=== PATIENT | female | born 1975 | race American Indian/Alaskan Native ===

== ENCOUNTER 2016-07-27 15:07 | Emergency (ER) | payer OTHER, MEDICARE ==
[2016-07-27 16:01] VITALS: BP 130/98
[2016-07-27] MEDS ORDERED: Sodium Chloride 0.9% 10 ML Syringe FLUSH PRN (16:26)
[2016-07-27] MEDS ORDERED: Ondansetron 4 MG/2 ML SDV IVPUSH ONE (16:26)
[2016-07-27] MEDS ORDERED: Pantoprazole 40 MG Vial IVPUSH ONE (16:26)
[2016-07-27] MEDS ORDERED: HYDROmorphone 1 MG/ML Syringe IVPUSH ONE (16:26)
[2016-07-27] MEDS ORDERED: Sodium Chloride 0.9% 1,000 ML IV ONE (16:26)
--- NOTE | 2016-07-27 16:29 | EDM.PDOC ---
ED HPI GENERAL MEDICAL PROBLEM - General Chief Complaint: Abdominal Pain Stated Complaint: ABDOMINAL PAIN NO BM IN 5 DAYS Time Seen by Provider: 07/27/16 16:17 Source of Information: Reports: Patient History Limitations: Reports: No Limitations - History of Present Illness INITIAL COMMENTS - FREE TEXT/NARRATIVE: Patient is a 40-year-old female with history of Crohn's disease and bowel resection along with bowel obstruction one year ago presenting to the ED with no bowel movement for the past 5 days. She's had 3 episodes of emesis concerning for fecal matter present. She had diffuse abdominal discomfort at this time. Last flareup was approximately one month ago. She was seen at [facility] in [facility]. States her abdomen is distended and has not been passing gas. She has been taking MiraLax for the past 5 days and also Colace multiple times per day. She last ate this a.m. only to vomit up all the food. She has pain to her rectum with straining and has noticed some blood on the tissue with wiping. Denies any fever/chills, shortness of breath, chest pain , blood in her emesis, or pain with urination. Past medical history: History of bowel obstruction one year ago, Crohn's disease , bowel resection, diabetes, PTSD, hepatitis C Current medications: Prozac, trazodone, NovoLog , Levemir, and Bentyl. Onset: Other Duration: Day(s): (5), Constant, Getting Worse, Waxing/Waning Location: Reports: Abdomen Quality: Reports: Ache, Sharp, Other (cramping) Severity: Severe Improves with: Reports: None Worsens with: Reports: Other (palpation), Movement Associated Symptoms: Reports: Loss of Appetite, Nausea/Vomiting. Denies: Chest Pain, Fever/Chills, Shortness of Breath Treatments SEARCH ENGINE OPTIMIZER: Reports: Other (see below) Other Treatments SEARCH ENGINE OPTIMIZER: miralax Lower Abdominal Pain Score (Numeric/FACES): 8 - Related Data Allergies Allergy/AdvReac Type Severity Reaction Status Date / Time aripiprazole [From Abilify] Allergy Shaking Verified 07/27/16 15:55 haloperidol [From Haldol] Allergy Cannot Verified 05/26/16 21:34 CDT Remember haloperidol lactate Allergy Cannot Verified 05/26/16 21:34 CDT [From Haldol] Remember ketorolac tromethamine Allergy Seizure Verified 05/26/16 21:34 CDT [From Toradol] metoclopramide [From Reglan] Allergy Hives Verified 07/27/16 15:55 morphine Allergy Itching Verified 05/26/16 21:34 CDT tramadol Allergy Seizure Verified 05/26/16 21:34 CDT Home Meds: Home Meds Insulin Aspart [NovoLOG] 30 unit SUBCUT TIDAC 10/24/15 [History] Insulin Detemir [Levemir] 75 unit SUBCUT BID 10/24/15 [History] FLUoxetine [PROzac] 60 mg PO ACBREAKFAST 12/03/15 [History] traZODone 150 mg PO BEDTIME 04/27/16 [History] Nystatin [Nystatin Crm] 1 millunits TOP QID #1 tube 04/29/16 [Rx] Acetaminophen/HYDROcodone [[place] 325-5 MG] 1 tab PO Q6H PRN #10 tablet 07/27/16 [Rx] Magnesium Citrate [Citrate of Magnesia] 296 ml PO ONETIME #1 bottle 07/27/16 [Rx ] Ondansetron [Zofran ODT] 4 mg PO Q6H PRN #10 tab.dis 07/27/16 [Rx] Past Medical History HEENT History: Reports: None Cardiovascular History: Reports: None Respiratory History: Reports: None Gastrointestinal History: Reports: Bowel Obstruction, GERD, Other (See Below) Other Gastrointestinal History: crohns Genitourinary History: Reports: Renal Calculus Other Genitourinary History: Intermittent yeast infections PRODUCT SPECIALIST History: Reports: Other (See Below) Other OB/BYN History: Partial hysterectomy. Musculoskeletal History: Reports: None Neurological History: Reports: None Psychiatric History: Reports: Depression, PTSD, Suicide Attempt, Suicidal Ideation Other Psychiatric History: Pt takes Prozac and Trazadone. Endocrine/Metabolic History: Reports: Diabetes, Type II Immunologic History: Reports: Other (See Below) Other Immunologic History: Hx Hepatits C. Dermatologic History: Reports: Other (See Below) Other Dermatologic History: Dermatitis. - Infectious Disease History Infectious Disease History: Reports: Hepatitis C Other Infectious Disease History: no Hep C treatment - Past Surgical History HEENT Surgical History: Reports: None Musculoskeletal Surgical History: Reports: Knee Replacement, Shoulder Surgery Social & Family History - Family History Family Medical History: Noncontributory HEENT: Reports: None Other GI Family History: Chron's disease-mother Endocrine/Metabolic: Reports: Diabetes, type II - Tobacco Use Smoking Status *Q: Current Every Day Smoker Years of Tobacco use: 20 Packs/Tins Daily: 0.5 Used Tobacco, but Quit: No Second Hand Smoke Exposure: Yes - Caffeine Use Caffeine Use: Reports: None - Alcohol Use Days Per Week of Alcohol Use: 3 Number of Drinks Per Day: 1 Total Drinks Per Week: 3 - Recreational Drug Use Recreational Drug Use: No Drug Use in Last 12 Months: Yes Recreational Drug Type: Reports: Marijuana/Hashish ED ROS GENERAL - Review of Systems Review Of Systems: ROS reveals no pertinent complaints other than HPI. ED EXAM, GI/ABD - Physical Exam Exam: See Below Exam Limited By: No Limitations General Appearance: Alert, WD/WN, Mild Distress Ears: Hearing Grossly Normal Nose: Normal Inspection Throat/Mouth: Normal Voice, No Airway Compromise Head: Atraumatic, Normocephalic Neck: Normal Inspection, Supple Respiratory/Chest: No Respiratory Distress, Lungs Clear, Normal Breath Sounds Cardiovascular: Normal Peripheral Pulses, Regular Rate, Rhythm GI/Abdominal: Normal Bowel Sounds, Soft, No Organomegaly, Tenderness ( generalized), Distention, Other (the patient had a partial hysterectomy, cholecystectomy, bowel resection,and appendectomy) Course - Vital Signs Last Recorded V/S: Last Vital Signs Temp 98.0 F 07/27/16 15:56 Pulse 93 07/27/16 15:56 Resp 16 07/27/16 15:56 BP 130/98 H 07/27/16 15:56 Pulse Ox 100 07/27/16 15:56 - Orders/Labs/Meds Orders: Active Orders 24 hr Category Date Time Status Glucose [Blood Glucose Check, Bedside] [RC] ONETIME Care 07/27/16 17:37 Active Peripheral IV Care [RC] . DIRECTED Care 07/27/16 16:26 Active Peripheral IV Insertion Adult [OM.PC] Stat Oth 07/27/16 16:26 Ordered Labs: Laboratory Tests 07/27/16 07/27/16 07/27/16 Range/Units 16:45 16:45 16:45 WBC 8.74 (3.98-10.04) K/mm3 RBC 4.78 (3.98-5.22) M/mm3 Hgb 15.0 (11.2-15.7) gm/L Hct 42.3 (34.1-44.9) % MCV 88.5 (79.4-94.8) fl MCH 31.4 (25.6-32.2) pg MCHC 35.5 (32.2-35.5) g/dl RDW Std Deviation 43.0 (36.4-46.3) fL Plt Count 224 (182-369) K/mm3 MPV 10.2 (9.4-12.3) fl Neut % (Auto) 57.2 (34.0-71.1) % Lymph % (Auto) 31.9 (19.3-51.7) % [place] % (Auto) 9.0 (4.7-12.5) % Eos % (Auto) 0.7 (0.7-5.8) Baso % (Auto) 0.6 (0.1-1.2) % Neut # (Auto) 5.00 (1.56-6.13) K/mm3 Lymph # (Auto) 2.79 (1.18-3.74) K/mm3 [place] # (Auto) 0.79 H (0.24-0.36) K/mm3 Eos # (Auto) 0.06 (0.04-0.36) K/mm3 Baso # (Auto) 0.05 (0.01-0.08) K/mm3 Sodium 131 L (136-145) mEq/L Potassium 3.5 (3.5-5.1) mEq/L Chloride 96 L (98-107) mEq/L Carbon Dioxide 22 (21-32) mEq/L Anion Gap 16.5 H (5-15) BUN 7 (7-18) mg/dL Creatinine 0.8 (0.55-1.02) mg/dL Est Cr Clr Drug Dosing 88.38 mL/min Estimated GFR (MDRD) > 60 (>60) mL/min BUN/Creatinine Ratio 8.8 L (14-18) Glucose 457 H (74-106) mg/dL POC Glucose (70-105) mg/dL Calcium 9.3 (8.5-10.1) mg/dL Total Bilirubin 0.4 (0.2-1.0) mg/dL AST 74 H (15-37) U/L ALT 113 H (14-59) U/L Alkaline Phosphatase 305 H (46-116) U/L C-Reactive Protein < 0.2 (<1.0) mg/dL Total Protein 8.3 H (6.4-8.2) g/dl Albumin 3.5 (3.4-5.0) g/dl Globulin 4.8 gm/dL Albumin/Globulin Ratio 0.7 L (1-2) Lipase 312 (73-393) U/L Urine Color (Yellow) Urine Appearance (Clear) Urine pH (5.0-8.0) Ur Specific [place] (1.005-1.030) Urine Protein (Negative) Urine Glucose (UA) (Negative) Urine Ketones (Negative) Urine Occult Blood (Negative) Urine Nitrite (Negative) Urine Bilirubin (Negative) Urine Urobilinogen (0.2-1.0) Ur Leukocyte Esterase (Negative) Urine RBC (0-5) /hpf Urine WBC (0-5) /hpf Ur Epithelial Cells Ur Squamous Epith Cells (0-5) /hpf Urine Bacteria (FEW) /hpf Urine Mucus (FEW) /hpf Urine Opiates Screen (NEGATIVE) Ur Buprenorphine Scrn (NEGATIVE) Ur Oxycodone Screen (NEGATIVE) Urine Methadone Screen (NEGATIVE) Ur Propoxyphene Screen (NEGATIVE) Ur Barbiturates Screen (NEGATIVE) Ur Tricyclics Screen (NEGATIVE) Ur Phencyclidine Scrn (NEGATIVE) Ur Amphetamine Screen (NEGATIVE) U Methamphetamines Scrn (NEGATIVE) U Benzodiazepines Scrn (NEGATIVE) U Cocaine Metab Screen (NEGATIVE) U Marijuana (THC) Screen (NEGATIVE) Ketones 0.12 (0.0-0.3) mM 07/27/16 07/27/16 07/27/16 Range/Units 17:40 17:55 17:55 WBC (3.98-10.04) K/mm3 RBC (3.98-5.22) M/mm3 Hgb (11.2-15.7) gm/L Hct (34.1-44.9) % MCV (79.4-94.8) fl MCH (25.6-32.2) pg MCHC (32.2-35.5) g/dl RDW Std Deviation (36.4-46.3) fL Plt Count (182-369) K/mm3 MPV (9.4-12.3) fl Neut % (Auto) (34.0-71.1) % Lymph % (Auto) (19.3-51.7) % [place] % (Auto) (4.7-12.5) % Eos % (Auto) (0.7-5.8) Baso % (Auto) (0.1-1.2) % Neut # (Auto) (1.56-6.13) K/mm3 Lymph # (Auto) (1.18-3.74) K/mm3 [place] # (Auto) (0.24-0.36) K/mm3 Eos # (Auto) (0.04-0.36) K/mm3 Baso # (Auto) (0.01-0.08) K/mm3 Sodium (136-145) mEq/L Potassium (3.5-5.1) mEq/L Chloride (98-107) mEq/L Carbon Dioxide (21-32) mEq/L Anion Gap (5-15) BUN (7-18) mg/dL Creatinine (0.55-1.02) mg/dL Est Cr Clr Drug Dosing mL/min Estimated GFR (MDRD) (>60) mL/min BUN/Creatinine Ratio (14-18) Glucose (74-106) mg/dL POC Glucose 323 H (70-105) mg/dL Calcium (8.5-10.1) mg/dL Total Bilirubin (0.2-1.0) mg/dL AST (15-37) U/L ALT (14-59) U/L Alkaline Phosphatase (46-116) U/L C-Reactive Protein (<1.0) mg/dL Total Protein (6.4-8.2) g/dl Albumin (3.4-5.0) g/dl Globulin gm/dL Albumin/Globulin Ratio (1-2) Lipase (73-393) U/L Urine Color Light yellow (Yellow) Urine Appearance Clear (Clear) Urine pH 6.5 (5.0-8.0) Ur Specific [place] 1.015 (1.005-1.030) Urine Protein Negative (Negative) Urine Glucose (UA) 2+ H (Negative) Urine Ketones Negative (Negative) Urine Occult Blood Negative (Negative) Urine Nitrite Negative (Negative) Urine Bilirubin Negative (Negative) Urine Urobilinogen 0.2 (0.2-1.0) Ur Leukocyte Esterase Negative (Negative) Urine RBC Not seen (0-5) /hpf Urine WBC 0-5 (0-5) /hpf Ur Epithelial Cells Not Reportable Ur Squamous Epith Cells 10-20 H (0-5) /hpf Urine Bacteria Not seen (FEW) /hpf Urine Mucus Not seen (FEW) /hpf Urine Opiates Screen Presumptive positive H (NEGATIVE) Ur Buprenorphine Scrn Negative (NEGATIVE) Ur Oxycodone Screen Negative (NEGATIVE) Urine Methadone Screen Negative (NEGATIVE) Ur Propoxyphene Screen Negative (NEGATIVE) Ur Barbiturates Screen Negative (NEGATIVE) Ur Tricyclics Screen Negative (NEGATIVE) Ur Phencyclidine Scrn Negative (NEGATIVE) Ur Amphetamine Screen Negative (NEGATIVE) U Methamphetamines Scrn Negative (NEGATIVE) U Benzodiazepines Scrn Negative (NEGATIVE) U Cocaine Metab Screen Negative (NEGATIVE) U Marijuana (THC) Screen Negative (NEGATIVE) Ketones (0.0-0.3) mM Meds: Medications Discontinued Medications Generic Name Dose Route Start Last Admin Trade Name Freq PRN Reason Stop Dose Admin Diatrizoate Meglum/Diatrizoate Sod 90 ml 07/27/16 19:35 07/27/16 20:14 Gastrografin 37% PO 07/27/16 19:36 90 ml ONETIME ONE Administration Hydromorphone HCl 0.5 mg 07/27/16 16:26 07/27/16 16:53 Dilaudid IVPUSH 07/27/16 16:27 0.5 mg ONETIME ONE Administration Hydromorphone HCl 0.5 mg 07/27/16 19:16 07/27/16 19:20 Dilaudid IVPUSH 07/27/16 19:17 0.5 mg ONETIME ONE Administration Hydromorphone HCl 0.5 mg 07/27/16 20:58 07/27/16 21:18 Dilaudid IM 07/27/16 20:59 0.5 mg ONETIME ONE Administration Sodium Chloride 1,000 mls @ 999 mls/hr 07/27/16 16:26 07/27/16 16:50 Normal Saline IV 07/27/16 17:26 999 mls/hr ONETIME ONE Administration Iopamidol 100 ml 07/27/16 19:35 07/27/16 20:14 Isovue-300 (61%) IVPUSH 07/27/16 19:36 100 ml ONETIME ONE Administration Ondansetron HCl 4 mg 07/27/16 16:26 07/27/16 16:50 Zofran IVPUSH 07/27/16 16:27 4 mg ONETIME ONE Administration Pantoprazole Sodium 40 mg 07/27/16 16:26 07/27/16 16:51 Protonix Iv IVPUSH 07/27/16 16:27 40 mg ONETIME ONE Administration Sodium Chloride 10 ml 07/27/16 16:26 07/27/16 16:52 Saline Flush FLUSH 10 ml ASDIRECTED PRN Administration Keep Vein Open Sodium Chloride 10 ml 07/27/16 19:35 07/27/16 20:14 Saline Flush FLUSH 07/27/16 19:36 10 ml ONETIME ONE Administration - Re-Assessments/Exams Free Text/Narrative Re-Assessment/Exam: Patient is a 40-year-old female with history of Crohn's disease and bowel resection along with bowel obstruction one year ago presenting to the ED with no bowel movement for the past 5 days. She's had 3 episodes of emesis concerning for fecal matter present. She had diffuse abdominal discomfort at this time. Will order a peripheral IV with normal saline 999 mL per hour, Dilaudid 0.5 mg IVP, Zofran 4 mg IVP, Protonix 40 mg IVP, CBC, chem 14, CMP, lipase, UA, abdominal flat and upright x-ray, and patient to be n.p.o. Flat and upright x-ray revealed multiple air-fluid levels with copious amounts of stool throughout her colon. History of small bowel obstruction will order CT abdomen and pelvis with oral and IV contrast. Labs reviewed: CBC essentially normal. Sodium 131,potassium 3.5, glucose 457 rechecked by bedside glucose 332, AST 74, ALT 131, alkaline phosphatase 305, CRP less than 0.2, and lipase 312. 07/27/16 19:17 Patient complaining of pain. Ordered 0.5mg IVP. CT of abdomen and pelvis findings consistent with nonspecific enteritis and mild increased stool within the colon. Unclear etiology of enteritis. Most likely viral cause. Patient requesting something to help her have a bowel movement. Soap Suds Enema ordered. Soap Suds Enema performed with good results. Pain has decreased. Will discharge patient home with instructions. 07/28/16 15:00 Departure - Departure Time of Disposition: 21:40 Disposition: Home, Self-Care 01 Condition: good Clinical Impression: Enteritis, Hyperglycemia, Elevated liver function tests Nausea & vomiting Qualifiers: Vomiting type: unspecified Vomiting Intractability: non-intractable Qualified Code(s): R11.2 - Nausea with vomiting, unspecified Abdominal pain Qualifiers: Abdominal location: epigastric Qualified Code(s): R10.13 - Epigastric pain Constipation Qualifiers: Constipation type: unspecified constipation type Qualified Code(s): K59.00 - Constipation, unspecified - Discharge Information Prescriptions: Acetaminophen/HYDROcodone [[place] 325-5 MG] 1 tab PO Q6H PRN #10 tablet PRN Reason: Pain (Severe 7-10) Magnesium Citrate [Citrate of Magnesia] 296 ml PO ONETIME #1 bottle Ondansetron [Zofran ODT] 4 mg PO Q6H PRN #10 tab.dis PRN Reason: Nausea/Vomiting Instructions: Abdominal Pain, Adult, [id number], Nausea and Vomiting, Adult, [id number], Constipation, Adult, [id number], Viral Gastroenteritis, Adult, [id number] Referrals: PCP,Not In Area [Primary Care Provider] - Forms: ED Department Discharge, Return to Work/School Form Additional Instructions: As discussed will have you take zofran 4 mg every 6 hours for nausea. Will have you stick with a clear liquid diet for the next 3 days. Advance to low residue diet thereafter until pain and BM's improve. Once nausea/vomiting resolves take full bottle of mag citrate. Continue to take colace 100mg twice a day for the next 5 days. For severe pain take norco 1 tab every 6 hours. Followup with PCP this coming week if symptoms do not improve. Return to the E.D. for any new or worsening symptoms. - My Orders Last 24 Hours: My Active Orders 07/27/16 16:26 Peripheral IV Care [RC] . DIRECTED Peripheral IV Insertion Adult [OM.PC] Stat 07/27/16 17:37 Glucose [Blood Glucose Check, Bedside] [RC] ONETIME - Assessment/Plan Last 24 Hours: My Active Orders 07/27/16 16:26 Peripheral IV Care [RC] . DIRECTED Peripheral IV Insertion Adult [OM.PC] Stat 07/27/16 17:37 Glucose [Blood Glucose Check, Bedside] [RC] ONETIME
[2016-07-27] MEDS ORDERED: HYDROmorphone 0.5 MG/0.5 ML Syringe IVPUSH ONE (19:16)
[2016-07-27] MEDS ORDERED: Sodium Chloride 0.9% 10 ML Syringe FLUSH ONE (19:35)
[2016-07-27] MEDS ORDERED: Iopamidol 612 MG/ML 100 ML Bottle IVPUSH ONE (19:35)
[2016-07-27] MEDS ORDERED: Diatrizoate Meglumine/Diatrizoate Sodium 37% 120 ML Bottle PO ONE (19:35)
--- NOTE | 2016-07-27 20:35 | CT ---
CT abdomen and pelvis Technique: Multiple axial sections were obtained from above the dome of the diaphragm inferiorly through the pubic symphysis. Intravenous and oral contrast was utilized. Delayed images were also obtained through the bladder. Comparison: Previous CT abdomen and pelvis exam dated 11/07/14. Findings: Visualized lung bases shows nothing acute. Liver shows no focal parenchymal abnormality. Surgical clips are noted from prior cholecystectomy. Pancreas appears within normal limits. Spleen size is normal. Adrenal glands show no nodule. Kidneys show no hydronephrosis or mass. Delayed images show contrast within the distal ureters and within the bladder. Aorta shows no aneurysmal dilatation. No retroperitoneal adenopathy or mesenteric abnormalities are seen. No pelvic mass or adenopathy is noted. Colon shows mild increased stool. There is small bowel wall thickening noted within several proximal jejunal loops. Ileal loops appear unremarkable. Appendix is not visualized. Bone window settings were reviewed which show disc space narrowing and vacuum phenomena at L4-L5. Lesser disc space narrowing is noted at L5-S1. Impression: 1. Nonspecific bowel wall thickening within several jejunal loops compatible with a nonspecific enteritis. 2. Mild increased stool within the colon. 3. No additional abnormality is identified on CT study of the abdomen and pelvis. Diagnostic code #3
[2016-07-27] MEDS ORDERED: HYDROmorphone 0.5 MG/0.5 ML Syringe IM ONE (20:58)
--- NOTE | 2016-07-28 07:49 | CR ---
Abdomen: Supine and upright views of the abdomen were obtained. Bowel gas pattern appears normal. Surgical clips are seen from prior cholecystectomy. No abnormal calcifications are seen. Bony structures are unremarkable. Impression: 1. Nothing acute is seen on two-view abdominal x-ray. Diagnostic code #2
== END 2016-07-27 22:05 | disposition home or self-care (01) ==
LOC: JD.ED 15:07
DX: K52.9 Noninfective gastroenteritis and colitis, unspecified (principal); K59.00 Constipation, unspecified; E11.65 Type 2 diabetes mellitus with hyperglycemia; R79.89 Other specified abnormal findings of blood chemistry; F17.210 Nicotine dependence, cigarettes, uncomplicated; K21.9 Gastro-esophageal reflux disease without esophagitis; F32.9 Major depressive disorder, single episode, unspecified; Z90.710 Acquired absence of both cervix and uterus; Z88.5 Allergy status to narcotic agent; Z88.8 Allergy status to other drugs, medicaments and biological substances; Z79.4 Long term (current) use of insulin; Z79.899 Other long term (current) drug therapy; Z96.659 Presence of unspecified artificial knee joint
CPT/HCPCS: 36415; 74020; 74177; 80053; 80306; 81001; 82009; 82962; 83690; 85025; 86140; 96361; 96372; 96374; 96375; 96376; 99285; C9113; J1170; J2405; J7040; J7050; Q9963; Q9967; 99284